=== PATIENT | female | born 1985 | race Two or more races ===

== ENCOUNTER 2023-03-09 23:09 | Emergency (ER) | payer MEDICAID, OTHER ==
[~2023-03-09] VITALS: Ht 162.6 cm; Wt 88.6 kg
[2023-03-10 00:15] LABS: Urine Bacteria NONE SEEN /hpf (None Seen); Urine Blood Negative /uL (Negative); Urine Clarity Clear (Clear); Urine Color Yellow (Yellow); Urine Mucus FEW (None Seen); Urine Protein, UAD Negative (Negative); Urine Specific Gravity 1.023 (1.001-1.035); Urine WBC 1 /hpf (0 - 5)
[2023-03-10 00:17] LABS: Basophils # (auto) 0.1 10 ^3/uL (0-0.2); Basophils % (auto) 0.4 % (0.0-2.0); Eosinophils # (auto) 0.1 10 ^3/uL (0-0.8); Eosinophils % (auto) 1.2 % (0.0-7.0); Hematocrit 42.4 % (36.0-46.0); Hemoglobin 14.1 g/dL (12.2-16.2); Lymphocytes # (auto) 4.4 10 ^3/uL (0.4-5.4); Lymphocytes % (auto) 37.7 % (10.0-50.0); Mean Corpuscular Hemoglobin 29.7 pg (28.0-32.0); Mean Corpuscular Hgb Conc. 33.2 g/dL (32.0-36.0); Mean Corpuscular Volume 89.2 fL (80.0-100.0); Monocytes # (auto) 0.7 10 ^3/uL (0-1.3); Monocytes % (auto) 5.6 % (0.0-12.0); Neutrophils # (auto) 6.4 10 ^3/uL (1.6-8.6); Neutrophils % (auto) 55.1 % (37.0-80.0); Red Blood Cells 4.75 10^6/uL (4.0-5.20); White Blood Cell 11.7 10^3/uL (4.4-10.8)
[2023-03-10 00:28] LABS: Alanine Aminotransferase 16 U/L (7-40); Alkaline Phosphatase 106 U/L (46-116); Anion Gap 4 (5-15); Aspartate Aminotransferase < 8 U/L (13-40); BUN/Creatinine Ratio 13.6 (10.0-20.0); Blood Urea Nitrogen 9 mg/dL (9-23); Carbon Dioxide 27 mmol/L (20-30); Chloride 107 mmol/L (98-107); Glucose 104 mg/dL (74-106); Lipase 48 U/L (12-53); Sodium 138 mmol/L (136-145)
[2023-03-10 00:29] LABS: Bilirubin, Total 0.4 mg/dL (0.2-1.0); Total Protein 7.2 g/dL (5.7-8.2)
[2023-03-10] MEDS ORDERED: IOHEXOL 350 MG/ML 100ML IJ ONE (00:31)
[2023-03-10 03:14] VITALS: BP 103/66; PULSE 77; RESP 18; TEMP 98.1; O2SAT 99
== END 2023-03-10 03:15 | disposition home or self-care (01) ==
LOC: ER 23:09
DX: K80.20 Calculus of gallbladder without cholecystitis without obstruction (principal); R10.2 Pelvic and perineal pain; E11.9 Type 2 diabetes mellitus without complications; Z32.02 Encounter for pregnancy test, result negative
CPT/HCPCS: 36415; 71045; 74177; 76705; 80053; 81001; 81025; 83690; 84484; 84702; 85025; 93005; 99285; Q9967

== ENCOUNTER 2023-12-25 21:48 | Emergency (ER) | payer MEDICAID ==
[~2023-12-25] VITALS: Ht 162.6 cm; Wt 79.9 kg
[2023-12-25 22:00] VITALS: BP 148/78
[2023-12-26] MEDS ORDERED: ACE3T PO (00:20)
[2023-12-26] MEDS ORDERED: IBUP-1455 PO (00:20)
[2023-12-26] MEDS: KETOROLAC TROMETH 60MG/2ML VIAL IM ONE (00:26)
[2023-12-26] MEDS: HYDROcodone-ACET 10/325MG TAB PO ONE (00:26)
[2023-12-26 00:31] VITALS: PULSE 88; RESP 16; O2SAT 97
[2023-12-26] MEDS ORDERED: TRAM50TA2 PO (01:22)
== END 2023-12-26 01:24 | disposition home or self-care (01) ==
LOC: ER 21:48
DX: S62.396A Other fracture of fifth metacarpal bone, right hand, initial encounter for closed fracture (principal); E11.9 Type 2 diabetes mellitus without complications; W18.39XA Other fall on same level, initial encounter; Y93.01 Activity, walking, marching and hiking; Y92.89 Other specified places as the place of occurrence of the external cause; Y99.8 Other external cause status
CPT/HCPCS: 29125; 73130; 96372; 99283; J1885